=== PATIENT | female | born 1955 ===

== ENCOUNTER 2025-04-01 07:00 | Day surgery (SDC) | payer OTHER ==
[2025-03-26 12:56] VITALS: BP 150/72
[~2025-04-01] VITALS: Ht 154.9 cm; Wt 76.7 kg
[~2025-04-01 07:00] MED LIST: ATORVASTATIN CA10 MG PO; CELEXA20 MG PO; COZAAR50 MG PO; METFORMIN HCL500 M3 PO
[2025-04-01] MEDS ORDERED: BACTRIM DS TAB1 EACH PO (11:29)
[2025-04-01] MEDS ORDERED: PROMETHAZINE HCL 25 MG/ML AMPUL IM PRN (11:30)
[2025-04-01] MEDS ORDERED: MEPERIDINE HCL/PF 25 MG/ML VIAL IM PRN (11:30)
[2025-04-01] MEDS ORDERED: DOLOGESIC 500-1 EACH PO (11:32)
[2025-04-01 17:48] VITALS: BP 117/50; O2SAT 100
[2025-04-03] MEDS ORDERED: VANCOMYCIN HCL 1,000 MG VIAL IV SCH (13:30)
== END 2025-04-01 15:20 | disposition home or self-care (01) ==
LOC: CIR.AMB 07:00
PROVIDERS: ATTEND Orthopaedic Surgery Sports Medicine
DX: M65.342 Trigger finger, left ring finger (principal); Z88.8 Allergy status to other drugs, medicaments and biological substances